=== PATIENT | male | born 1955 | race Caucasian/White ===

== ENCOUNTER → 2017-01-26 | Outpatient (CLI) | payer OTHER ==
[~2017-01-26] MED LIST: LORA1TAB PO; ODANSETRON PO; OXYC10TA6 PO; OXYC30TA66 PO; PRED5TAB PO; PROC10TA PO; TEMA15CA PO
== END | disposition home or self-care (01) ==
LOC: CFH 11:40
PROVIDERS: ATTEND Internal Medicine Hematology & Oncology
DX: C79.51 Secondary malignant neoplasm of bone (principal); C61 Malignant neoplasm of prostate; M79.89 Other specified soft tissue disorders

== ENCOUNTER 2017-04-28 14:57 | Emergency (ER) | payer OTHER ==
[~2017-04-28] VITALS: Ht 190.5 cm; Wt 97.9 kg
[2017-04-28] MEDS ORDERED: SODIUM CHLORIDE 0.9% 1,000ML IVBOLUS ONE (15:30)
[2017-04-28] MEDS ORDERED: ONDANSETRON 2MG/ML, 2ML IVPush ONE (15:30)
[2017-04-28 15:31] LABS: HEMATOCRIT 26.6 % (39.2-51.8); HEMOGLOBIN 8.7 g/dL (13.7-18.0); WHITE BLOOD COUNT 5.6 x10^3/uL (3.4-10)
[2017-04-28] MEDS ORDERED: OMEP-110 PO (15:31)
[2017-04-28] MEDS ORDERED: VENL75TA PO (15:31)
[2017-04-28 15:42] LABS: ASPARTATE AMINO TRANSFERASE 31 U/L (15-37); BLOOD UREA NITROGEN 17 mg/dL (7-18)
[2017-04-28] MEDS ORDERED: ONDANSETRON 2MG/ML, 2ML ONE (15:58)
[2017-04-28] MEDS ORDERED: morphine SULFATE 10 MG/ML, 1ML ONE (15:58)
[2017-04-28] MEDS: MORPHINE SULFATE 4 MG/ML, 1ML IVPush PRN ×2 (16:14→16:35)
[2017-04-28] MEDS ORDERED: OMNIPAQUE 350 MG/ML, 100ML BOTTLE ONE (16:38)
[2017-04-28 17:07] VITALS: BP 157/82
[2017-04-28] MEDS ORDERED: HYDROmorphone 2 MG/ML, 1ML ONE (17:44)
[2017-04-28] MEDS ORDERED: HYDROmorphone 1 MG/ML, 1ML IV ONE (18:00)
== END 2017-04-28 18:52 | disposition home or self-care (01) ==
LOC: ED 16:37
DX: R10.31 Right lower quadrant pain (principal); R59.0 Localized enlarged lymph nodes; C61 Malignant neoplasm of prostate; C79.51 Secondary malignant neoplasm of bone
CPT/HCPCS: 36415; 74177; 80053; 81003; 83690; 85025; 96361; 96374; 96375; 99285; J1170; J2405; J7030; Q9967

== ENCOUNTER → 2017-07-26 | Outpatient (CLI) | payer OTHER ==
[~2017-07-26] MED LIST changes: +OMEP-110 PO; +VENL75TA PO
== END | disposition home or self-care (01) ==
LOC: CFH 15:01
PROVIDERS: ATTEND Internal Medicine Hematology & Oncology
DX: I82.401 Acute embolism and thrombosis of unspecified deep veins of right lower extremity (principal); M79.604 Pain in right leg; M79.89 Other specified soft tissue disorders; C61 Malignant neoplasm of prostate